=== PATIENT | male | born 1990 | race Caucasian/White ===

== ENCOUNTER 2017-03-14 19:23 | Emergency (ER) | payer OTHER ==
[~2017-03-14] VITALS: Ht 180.3 cm; Wt 82.7 kg
[2017-03-14] MEDS ORDERED: NAPR275T59 PO (19:51)
[2017-03-14] MEDS ORDERED: HYDR-2758 PO (19:51)
--- NOTE | 2017-03-14 19:52 | PHYS DOC ---
Past History Past Medical History: No Pertinent History Past Surgical History: No Surgical History Smoking: Non-smoker Drug Use: None Adult General Chief Complaint Chief Complaint: KNEE INJURY [facility] HPI She is a pleasant 26-year-old male who was playing football tonight with some friends when he was doing across route and another soldier ran into him at an angle causing him to fall in a valgus stress over the left knee. He felt a pop on the medial aspect of his knee and anterior portion of his knee and he's been having difficulty moving it since. Pain is very severe 9 of 10 with movement 7 of 10 at rest without localized swelling or significant numbness and tingling distally to the wound. Patient denies any other injury to his back, hip, neck, shoulders or head. 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 Patient denies any prior injury to this knee. At this point he denies any locking or popping but he said he has refused to move it since the injury. Review of Systems Review of Systems Constitutional: Denies fever or chills Respiratory: Denie shortness of breath [] Cardiovascular: No additional information not addressed in HPI [] GI: Denies abdominal pain, : Denies dysuria or hematuria [] Musculoskeletal: Denies back pain as mentioned complaint is left knee pain Integument: Denies rash or skin lesions [] Neurologic: Denies headache, focal weakness or sensory changes [] Physical Exam Physical Exam Constitutional: Well developed, well nourished, no acute distress, non-toxic appearance. [] Neck: Normal range of motion, no tenderness, supple, no stridor. [] Cardiovascular:Heart rate regular rhythm, no murmur [] Lungs & Thorax: Bilateral breath sounds clear to auscultation [] Skin: Warm, dry, no erythema, no rash. [] Back: No tenderness, Extremities: Tenderness to palpation over the medial aspect of the left knee with marked laxity with valgus stress and anterior and posterior draw. Patient has a [facility] he is not able to tolerate or [facility]'s test. Pain was too severe patient has an intact patellar mechanism as he is able to extend at the patella albeit difficulty with pain. Neurologic: Alert and oriented X 3, normal motor function, normal sensory function, no focal deficits noted. [] Psychologic: Affect normal, judgement normal, mood normal. [] EKG EKG [] Radiology/Procedures Radiology/Procedures []3 view x-ray of the left knee read by me at 7:48 PM demonstrates no acute injury inside the joint like a tibial plateau fracture or proximal fibular fracture. Course & Med Decision Making Course & Med Decision Making Pertinent Labs and Imaging studies reviewed. (See chart for details) []he presents with a significant valgus stress and a pop over the medial aspect of the knee. On physical exam is significant laxity to the medial collateral ligament as well as anterior posterior cruciate ligaments on anterior posterior draw. Patient was not able to tolerate much in the way of other pertinent provocative testing of his knee secondary to significant pain. He is neurovascularly intact Dragon Disclaimer Dragon Disclaimer This chart was dictated in whole or in part using Voice Recognition software in a busy, high-work load, and often noisy Emergency Department environment. It may contain unintended and wholly unrecognized errors or omissions. Departure Departure: Impression: Primary Impression: Acute injury of left anterior cruciate ligament Additional Impression: Internal derangement of knee involving medial meniscus Disposition: 01 HOME, SELF-CARE Condition: STABLE Referrals: PCP,UNKNOWN (PCP) DEBBIE COMBS MD Patient Instructions: Knee - Ligament Injury, Arthroscopy, Knee Immobilization , Knee Pain, Medial Collateral Knee Ligament Sprain with Phase II Rehab- [facility] Additional Instructions: My discharge plan Follow up: In addition patient is asked to followup with their primary doctor, within a week for followup examination and to address patient's ongoing medical conditions. Patient is advised that in the Emergency Department primary complaints are addressed and only in light of known signs and symptoms. Patient should return immediately to the emergency department if new signs and symptoms develop or patient's condition worsens in any way. At time of discharge patient was in stable condition and had verbalized understanding of the discharge instructions. Although there is no acute fracture noted on x-ray today this does not mean subtle fractures are not missed on initial presentation. If your symptoms are not improved within 1 week or if symptoms worsen despite oral treatment with pain medications I would advise follow-up with your primary care doctor to have a repeat set of x-rays completed to ensure no subtle fractures were missed. Please understand that sometimes x-rays are missed red and if there is a misreading of your x-rays she will be contacted by the emergency room physician to talk about appropriate treatment. I am worried that you have a significant ligamentous injury to your knee although the x-rays do not show fractures soft tissue injuries are not well- visualized with plain films. I would advise number and MRI to be completed of your knee by your your primary care physician and referral to orthopedic surgery. Scripts Naproxen Sodium (NAPROXEN SODIUM) 275 Mg Tablet 275 MG PO BID for 7 Days, #14 TAB Prov: AMI REDDY MD 03/14/17 Hydrocodone Bit/Acetaminophen (HYDROCODONE-APAP 5-325 ) 1 Each Tablet 1 TAB PO PRN Q6HRS Y for PAIN for 5 Days, #14 TAB 0 Refills Prov: AMI REDDY MD 03/14/17 Problem Qualifiers AMI REDDY MD Mar 14, 2017 19:52
[2017-03-14] MEDS ORDERED: HYDROcodone/APAP 5/325MG 1 TAB TABLET PO ONE (20:10)
[2017-03-14 20:33] VITALS: BP 112/65
--- NOTE | 2017-03-15 08:17 | RAD ---
Left knee, 3 views, 03/14/2017: History: Trauma, knee pain No fracture or dislocation is identified. No significant joint effusion is seen. IMPRESSION: No acute left knee abnormality is detected.
== END 2017-03-14 20:33 | disposition home or self-care (01) ==
LOC: ER 19:23
DX: S83.512A Sprain of anterior cruciate ligament of left knee, initial encounter (principal); W03.XXXA Other fall on same level due to collision with another person, initial encounter; Y93.61 Activity, american tackle football; Y99.8 Other external cause status; Y92.89 Other specified places as the place of occurrence of the external cause
CPT/HCPCS: 29505; 73562; 99284-25